=== PATIENT | female | born 1940 | race Caucasian/White ===

== ENCOUNTER 2017-01-28 15:44 | Inpatient (IN) | payer MEDICARE, OTHER ==
--- NOTE | ~2017-01-28 | A ---
[facility] Nutrition Therapy DATE: 01/29/17 Patient: EDMAR OCHOA Physician: PHYLLIS Address: [address] [place] [address] ROAD Room/Bed: [address], Zip: [place] [address] Admit Date: 01/28/17 Date of : 40 Height: 4 1 Weight: 125 57 NUTRITIONAL ASSESSMENT: REASON: PT SEEN FOR WOUNDS NOTED DURING ICU ROUNDS PT IS 77 Y.O. FEMALE ADMITTED FOR UTI PMH: CHRONIC DECUBITUS ULCERS ON BILATERAL LEGS AND (R) HEEL, HTN, HLD Anthropometrics: 4'1", WT: 125# (57 KG), BMI: 36.6 Labs: BUN: 28, CA+:6.5,, ALB: 2.5, AST: 46, K+:3.4, GFR: 48.4 Meds: LIPITOR, ASCORBIC ACID, ZOFRAN, PROTONIX, COLACE I/O & Bowel function: NOT AVAILABLE Skin Integrity: (R) FOOT WOUND; WOUND VAC TO (R) HEEL Estimated Nutrition Needs: INCREASED PROTEIN NEEDS 2' WOUND NOTED Assessment: CHART REVIEWED AND EVENTS NOTED. PT SEEN FOR WOUNDS (NOTED DURING ICU ROUNDS). PT REPORTS DECREASED PO INTAKE 2' DECREASED APPETITE PAST WEEK 2' "NOT FEELING WELL". PT NOTES GOOD PO INTAKE AND APPETITE PRIOR TO A WEEK AGO. PT DENIES ANY RECENT WEIGHT LOSS. THIS RD ENCOURAGED SLOW GRADUAL PO INTAKE + PROVIDED WOUND CARE DIET EDUCATION. PT WILLING TO TRY ENSURE PUDDING BID + ENSURE CLEAR BID FOR ADDITIONAL PROTEIN AND KCAL. PT REPORTED NO DIET QUESTIONS AT THIS TIME. RD TO FOLLOW. SEE RECOMMENDATIONS BELOW. Dx: INCREASED PROTEIN NEEDS R/T WOUNDS NOTED AEB WOUND VAC IN PLACE. -DECREASED NUTRIENT INTAKE R/T CURRENT CONDITION AEB PT REPORT ABOVE. Intervention: 1. HH DIET 2. ENSURE PUDDING BID + ENSURE CLEAR BID 3. VERBAL WOUND CARE DIET EDUCATION Monitoring, Evaluation and Goals: 1. ORAL INTAKE; CONSUME >50% OF MEALS AND SUPPS W/NO C/O N/V/D 2. LABS; WNL 3. SKIN; PROMOTE WOUND HEALING 4. GI; PROMOTE REGULAR GI FUNCTION MONITOR: -WEIGHTS -PO INTAKE/APPETITE [facility] Nutrition Therapy DATE: 01/29/17 Patient: EDMAR C CARVER Physician: PHYLLIS Address: [address] [place] [address] Room/Bed: [address], Zip: [place] [address] Admit Date: 01/28/17 Date of : 40 Height: 4 1 Weight: 125 57 -SUPPLEMENT INTAKE Recommendations: 1. PLEASE ORDER JOSE D ENSURE PUDDING BID W/MEALS + APPLE ENSURE CLEAR BID W/MEALS FOR ADDITIONAL PROTEIN, FLUID AND KCAL 2. APPRECIATE FAMILY AND STAFF TO ENCOURAGE ADEQUATE KCAL, PROTEIN AND FLUID INTAKE RD WILL F/U PER PROTOCOL PT IS MILDLY COMPROMISED Respectfully, DELFINO ZAMBRANO MS, RD, LD Food and Nutritional Services [facility] cc: client file
--- NOTE | ~2017-01-28 | DS ---
Unit #: [id number] #: [id number] Patient: EDMAR OCHOA [id number] [address] [place], [place] [address] [id number] I MR#: [id number] NAME: EDMAR OCHOA. ROOM: [facility] Age: 77 Sex: F Admission Date: 01/28/2017 : 1940 Discharge Date: 02/06/2017 Attending Physician: Jeremiah Deshpande M.D. Primary Care Physician: Tatiana Hooper M.D. DISCHARGE SUMMARY DISCHARGE DIAGNOSES 1. Sepsis. 2. Bacteremia. 3. Urinary tract infection. 4. Right heel chronic ulcer with questionable infection. 5. Status post acute kidney injury. 6. Chronic obstructive pulmonary disease. 7. Anemia of chronic disease. 8. Hypokalemia. CONSULTANTS ON THIS HOSPITAL STAY 1. Dr. Haney, nephrology. 2. Dr. Tinsley, cardiology. 3. Dr. Hammer, infectious disease. LABS AND DIAGNOSTICS AND PROCEDURES ON THIS HOSPITAL STAY 1. Chest x-ray on admission showed cardiomegaly with a mild interstitial prominence. 2. CT abdomen and pelvis: No obstructing stone associated with either kidney. Renovascular calcification right kidney. Benign appearing cysts in both kidneys. Please see the full report in the chart. 3. Blood culture from January 28 positive for E. coli. 4. Repeat blood culture from January 30 so far negative. 5. Urine culture positive for E. coli. 6. Wound culture from January 29 showed some Pseudomonas and Proteus mirabilis. HISTORY OF PRESENT HOSPITAL STAY Please refer to H and P done by me for initial presentation on this female. The patient is a 77-year-old female, a patient of Dr. Craft, who apparently recently was discharged from [facility] where she was treated for sepsis secondary to bilateral lower extremity chronic decubitus ulcer. She came in with the wound VAC on the right heel wound. Upon the presentation her main complaints were fever and hypotension and she had elevated white count and elevated lactic acid. She was again hypotensive. She was started on empiric antibiotics, admitted to ICU for closer monitoring hemodynamically. Patient was followed by feller operator/cardiology Dr. Tinsley. Patient did well hemodynamic-hernández. Currently she is normotensive, in fact slightly hypertensive. She was also evaluated by ID and cultures were done which the results are as above. She is on appropriate antibiotic and stable to be discharged from ID standpoint with the continuation of the IV ampicillin all the way through February 11, 2017. She is currently afebrile. Unit #: [id number] #: [id number] Patient: EDMAR OCHOA Last white count was 10.8. Again stable for discharge, hemodynamically stable. UTI, culture as above. Continue antibiotics. Right heel wound with infection, was followed by wound care service here. Wound VAC was continued. Currently discussed with wound care service. They feel like she has pretty good looking granulation tissue and wound is healing well. The culture is as above. Again antibiotics per Infectious Disease. Acute kidney injury which has resolved. Discharge date BUN and creatinine 7 and 0.3. Hypokalemia, has been replaced. History of COPD, currently at the baseline. Anemia of chronic disease, last hemoglobin and hematocrit from yesterday was 9.8 and 31.5 and has been stable. DISCHARGE MEDICATIONS 1. Proventil inhaler two puffs inhaler q.4 h. p.r.n. for shortness of air. 2. Mag oxide 400 mg daily. 3. Lovenox 40 mg subcu daily. 4. Zofran 4 mg p.o. q.4 h. p.r.n. 5. Lopressor 12.5 mg p.o. b.i.d. 6. Colace 100 mg p.o. daily. 7. Lipitor 10 mg q.h.s. 8. Zinc sulfate 220 mg p.o. daily. 9. Pepcid 20 mg daily. 10. Carafate 1 g p.o. b.i.d. 11. Aspirin 81 mg daily. 12. Heth 5/325 one tablet t.i.d. p.r.n. for pain. 13. Vitamin C 500 mg daily. 14. Vitamin D 4000 units daily. 15. Ampicillin 2 g IV q.8 h. till February 11, 2017. DISPOSITION [facility] a prison unit. FOLLOWUP 1. [facility]. 2. Outpatient followup with the plastic and reconstructive surgery with Dr. Acuna for her wound care needs. Dictated by... Jeremiah Deshpande M.D. SUREKHA/camila TD: 02/06/2017 20:51 JOB #: [id number] Unit #: [id number] #: [id number] Patient: EDMAR OCHOA DISCHARGE SUMMARY Page 1 of 1 X Jeremiah Deshpande MD X DISCHARGE SUMMARY
--- NOTE | ~2017-01-28 | CT4 ---
[facility] A Service of [facility] & [facility] RADIOLOGY TEXT RESULTS PATIENT: EDMAR OCHOA LOCATION: [address] : [birth year] UNIT #: [id number] AGE: [address]: Jeremiah Deshpande MD SEX: F ORDER DR: [id number] [facility] [address] [place], [place] [address] [id number] I MR#: [id number] Acc #: [id number] NAME: EDMAR OCHOA. : 1940 SEX: F STUDY DATE/TIME: 01/29/2017 20:56 UNIT: [facility] ROOM: [facility] STUDY DESCRIPTION: CT Abd and Pelv Wo Cont Attending Physician: Jeremiah Deshpande M.D. Ordering Physician: Ed Rivera M.D. Primary Care Physician: Tatiana Hooper M.D. MEDICAL IMAGING REPORT This report is preliminary unless electronic signature is present EXAM Abdomen and pelvis CT, no contrast INDICATIONS Nausea, vomiting for 2 days. History of hysterectomy and appendectomy. TECHNIQUE Noncontrast CT of the abdomen and pelvis was performed. This CT exam was performed with one or more of the following radiation dose reduction techniques: Automatic exposure control, adjustment of mA and/or kV according to patient size, and iterative reconstruction. COMPARISON 11/30/[address] ABDOMEN: Exam degraded by noncontrast technique. Trace amount of pleural fluid or pleural thickening in the lung bases. Probable atelectasis in both lower lobes. The heart is enlarged, no pericardial effusion. Aorta demonstrates atherosclerotic change; there is no distinct aneurysm. The spleen and adrenal glands are unremarkable. The pancreas is unremarkable. Gallbladder surgically absent. Liver within normal limits. There are bilateral renal cysts. There is a right-sided predominance. The largest cyst in the right kidney measures about 2.7 cm and appears to represent a benign cyst. There is a tiny hyperdense, probably benign proteinaceous or hemorrhagic cyst in the mid-pole right kidney measuring 5 mm. It cannot be further characterized on this noncontrast study. Tiny nonobstructing stones present in the right kidney versus renal vascular calcifications. 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 Visualized right ureter unremarkable. [facility] A Service of [facility] & [facility] RADIOLOGY TEXT RESULTS PATIENT: EDMAR OCHOA LOCATION: [facility] CICCU2-07 : 40 UNIT #: [id number] AGE: [address]: Jeremiah Deshpande MD SEX: F ORDER DR: On the left, there is pelvocaliectasis of the left renal collecting system and perhaps mild hydronephrotic change. Incidental lower-pole cyst on the left. Left ureter is dilated in its mid and distal aspect, but there is no obstructing stone identified. This may reflect recent passage of a stone, but there is no distinct stone identified in the bladder. Reactive-appearing retroperitoneal nodes present. CT PELVIS: Bladder decompressed by a Teixeira catheter; there is air within the bladder. The wall of the bladder is thickened; correlate with urinalysis with respect to possible cystitis. There is some stranding in the perivesical space in the pelvis and surrounding the distal ureters, which may reflect sequelae of mild ascending urinary tract infection. Uterus surgically absent. No drainable fluid collection in the pelvis, no free fluid present or adnexal mass. Moderate stool burden in the colon. Intermittent diverticulosis. Appendix surgically absent. Inguinal canals demonstrate no adenopathy or fluid collection. No free air. There is multilevel degenerative change in the thoracolumbar spine and exaggeration of the thoracolumbar curve. No acute-appearing fracture or malalignment. IMPRESSION 1. There is no obstructing stone associated with either kidney. There is pelvocaliectasis or mild hydronephrotic change of the left kidney and similar findings were also present on the 2010 study. There is wall thickening of the bladder suggestive of cystitis, and there is some stranding in the perivesical space and stranding around the distal ureters suggesting an element of ascending urinary tract infection. Correlate with urinalysis. 2. Nonobstructing stones versus renal vascular calcifications in the right kidney. 3. Benign-appearing cysts in both kidneys. Indeterminate but probably benign hyperdense lesion in the mid-pole right kidney measures 5 mm. This is probably a proteinaceous or hemorrhagic cyst. Consider further evaluation initially with non-emergent ultrasound, although this may ultimately require follow up with CT to confirm stability. Multiphase imaging with renal protocol CT also an option for more definitive characterization, if the patient is a candidate for IV contrast administration. 4. Surgical absence of the appendix, gallbladder and uterus. 5. Intermittent diverticulosis. 6. Bibasilar atelectasis. Dictated by... Cristopher Maldonado M.D. THIS IS AN ELECTRONICALLY VERIFIED REPORT [facility] A Service of [facility] / [facility] RADIOLOGY TEXT RESULTS PATIENT: EDMAR OCHOA LOCATION: [place] [address]- : 40 UNIT #: [id number] AGE: [address]: Jeremiah Deshpande MD SEX: F ORDER DR: Cristopher Maldonado M.D. at 01/30/2017 10:18 AM LUL/cornelius TD: 01/29/2017 22:45 JOB #: [id number] MEDICAL IMAGING REPORT Page 1 of 1 COPY
--- NOTE | ~2017-01-28 | CO ---
Unit #: [id number] #: [id number] Patient: EDMAR OCHOA [id number] [facility]. [place], [place] [address] [id number] I MR#: [id number] NAME: EDMAR OCHOA. ROOM: [facility] Age: 77 Sex: F Admission Date: 01/28/2017 : 1940 Attending Physician: Jeremiah Deshpande M.D. Primary Care Physician: Tatiana Hooper M.D. Consultation Date: 01/30/2017 CONSULTATION REPORT REASON FOR CONSULTATION Urinary tract infection with sepsis. HISTORY OF PRESENT ILLNESS This is a 76-year-old female who recently was at [facility] for bilateral lower extremity wounds. The patient reports to me that she had her right heel debrided by Dr. Acuna. She did not grow anything which was confirmed per the outside hospital charting system. She was sent home on p.o. Augmentin. The patient reports that she completed her Augmentin about one to two weeks ago, but she retained her Teixeira catheter in place. The Teixeira catheter was left in her to not contaminate her wounds. The patient then reported that she gradually began with some anorexia and decreasing appetite, increasing abdominal pain and started to notice "cotton in her Teixeira catheter." The patient came to the hospital and was found to be hypotensive with a systolic blood pressure in the 70s. She had an elevated lactic acid level as well as leukocytosis. The patient was admitted for further evaluation and was noted to have gram negative rods in her blood, e-coli in her urine and elevated procalcitonin level of 174. The patient was started on Rocephin and ID was asked to evaluate. Last p.m. Dr. Rivera sent the patient for a CT scan of the abdomen and pelvis. Her antibiotics were changed to meropenem and she was given a dose of tobramycin times one. This morning the patient reports to me that she still complains of some nausea, but abdominal pain is improving. She overall is feeling a little bit better. PAST MEDICAL HISTORY 1. Hypertension. 2. Dyslipidemia. 3. Osteoarthritis. 4. Dwarfism. PAST SURGICAL HISTORY 1. Back surgery. 2. Cholecystectomy. 3. times two. 4. Appendectomy. SOCIAL HISTORY The patient lives with others. She has past tobacco abuse, but none current for the last 15 years. She denies any alcohol or drug use. ALLERGIES No known drug allergies. Unit #: [id number] #: [id number] Patient: EDMAR OCHOA CURRENT MEDICATIONS 1. Meropenem. 2. For further medications please refer to the patient's MAR. REVIEW OF SYSTEMS The patient denies any current fever and chills. She reports that these have subsided. She denies any headache. Nausea is still persistent, but denies any vomiting or diarrhea. The patient denies any chest pain or shortness of breath. She reports that her wounds on her extremities have all been improving per the home health nurse. PHYSICAL EXAMINATION GENERAL: This is an in no apparent distress female who is currently resting in the bed. VITALS: Temperature 98.2, with a t-max this admission of 101.6, pulse 103, blood pressure 97/56, respiratory rate 14. HEENT: Pupils are equal. Her neck is supple. LUNGS: Clear to auscultation bilaterally with no wheezes or rhonchi noted. HEART: S1 and S2. Regular rate and rhythm. ABDOMEN: Positive bowel sounds. Soft and nontender. EXTREMITIES: She has a wound VAC in place on her right heel. : She has a Teixeira catheter in place with a minimum sediment and clear yellow urine. DIAGNOSTIC STUDIES IMAGING: CT scan of the abdomen and pelvis. Please see full report for complete details. No obstructing stone in either kidney. Stable changes since 2009. Bladder wall thickening suggestive of cystitis. Some stranding in the ureters, consistent with ascending urinary tract infection. Nonobstructing stone versus renal vascular calcifications in the right kidney, benign appearing cysts bilaterally, diverticulosis. Chest x-ray shows cardiomegaly with interstitial prominence. LABORATORY: BUN 27, creatinine 0.8, sodium 137, potassium 4.5, chloride 111, CO2 16, bilirubin 0.8, AST 46, ALT 19, alkaline phosphatase 168, lactic acid 1.6 which is improved from 4.0 on admission and procalcitonin 187. White blood cell count 31.3, hemoglobin 11.2, hematocrit 37.2, platelets 93. Influenza screen was negative. Urinalysis shows innumerable WBCs, 4+ bacteria, negative nitrites. Culture shows 2 of 2 gram negative rods in the blood from 01/28/2017. Urine culture 01/28/2017 shows e-coli sensitive to ceftriaxone. Foot culture is negative. ASSESSMENT/PLAN This is a 77-year-old female with recent treatment for a right heel wound at outside hospital, status post antibiotic therapy. The patient's cultures at that facility were negative. The patient began with decreasing appetite and chills and was noticing abnormal appearance of her urine. The patient was admitted to the hospital and found to be hypotensive and febrile with elevated lactic acid and procalcitonin level, with positive blood cultures and urine. At this time will treat as gram negative bolivar sepsis with e-coli urinary tract infection secondary to retained Teixeira catheter. Would recheck blood cultures times two 30 minutes apart. Will continue the patient on meropenem at this time, but may be able to deescalate to ceftriaxone pending the patient's blood culture identification and sensitivities. The patient continues to have leukocytosis and thrombocytopenia, likely secondary to sepsis, but will Unit #: [id number] #: [id number] Patient: EDMAR OCHOA continue to follow her CBC findings. The patient also has a left heel wound that is currently in a wound VAC and unable to visualize at this time. The patient reports that this has continuously been improving and has been followed by her plastic surgeon, Dr. Acuna. Will continue local wound care. Her wound culture this facility done by the wound care nurse is currently negative to date. Thank you for allowing us to participate in the care of this patient. Further recommendations to follow pending the patient's clinical course. Dictated by... Kateryna CastPJimmyR.N. for Rj Kimball TD: 01/30/2017 10:36 JOB #: [id number] CONSULTATION REPORT Page 1 of 1 X X CONSULTATION REPORT
--- NOTE | ~2017-01-28 | EKG ---
PATIENT: EDMAR OCHOA UNIT #: [id number] Ventricular Rate: 108 BPM Atrial Rate: 108 BPM P-R Interval: 116 ms QRS Duration: 60 ms Q-T Interval: 372 ms QTC Calculation(Bezet): 498 ms P [place]: 25 degrees Calculated R [place]: -30 degrees Calculated T [place]: 43 degrees Diagnosis Line: Sinus tachycardia Diagnosis Line: Left axis deviation Diagnosis Line: Abnormal ECG Diagnosis Line: When compared with ECG of 21-NOV-2009 19:18, Diagnosis Line: Nonspecific T wave abnormality no longer evident Diagnosis Line: in Lateral leads Diagnosis Line: QT has lengthened Diagnosis Line: Confirmed by MIRANDA MAYO MD ([id number]) on 01/29/2017 Diagnosis Line: 4:57:26 AM INTERPRETING MD: MARIA ESTHER URENA
--- NOTE | ~2017-01-28 | CO ---
Unit #: [id number] #: [id number] Patient: EDMAR OCHOA [id number] [address] [place], [place] [address] [id number] MR#: [id number] NAME: EDMAR OCHOA. ROOM: [facility] Age: 77 Sex: F Admission Date: 01/28/2017 : 1940 Attending Physician: Jeremiah Deshpande M.D. Primary Care Physician: Tatiana Hooper M.D. Consultation Date: 01/29/2017 CONSULTATION REPORT REASON FOR CONSULT Hypotension. HISTORY OF PRESENT ILLNESS This is a pleasant 77-year-old female, who was recently hospitalized in December of this year at [facility] secondary to decubitus wounds lower extremities and status post debridement of a wound on her right heel on December 20, 2016 at [facility] with subsequent wound VAC placement. She was there with sepsis as well. At discharge, she was sent home with oral antibiotics and [facility] has been following her in the home setting. The patient states she was sent out with a Teixeira catheter as she is wheelchair bound and incontinent and there was concern about the urine getting in her wound site. She reports, however, she was found to have a urinary tract infection while [facility] was visiting her. They therefore removed the catheter. This continued to worsen and she presented secondary to worsening weakness, nausea, vomiting, and lower abdominal pain. According to the patient, [facility] suggested she come to the emergency room for evaluation. In the emergency room, she was found to have a urinary tract infection, hypotension, and an elevated lactic acid and she was admitted with urosepsis. Initial blood pressures were in the 70s to 80s systolic. She did receive IV hydration and hypotension continued requiring initiation of a dopamine drip. Her urine culture is currently pending. Preliminary blood cultures are growing gram-negative rods. She has been started on the appropriate antibiotic therapy and is currently receiving low-dose IV fluids. We have been asked to see in the ICU. The patient has no previous reported history of any cardiac problems. Denies any complaints of chest pain, shortness of breath, or palpitations. Denies any syncope or near syncope. PAST MEDICAL HISTORY 1. Hypertension. 2. Hyperlipidemia. 3. Osteoarthritis. 4. Reformed tobacco abuse. The patient quit in the . Prior to that, she was smoking about a pack and a half a day. PAST SURGICAL HISTORY 1. Back surgery, states she has been wheelchair bound since her back surgery. 2. Cholecystectomy. 3. C-sections x2. 4. Appendectomy. SOCIAL HISTORY Unit #: [id number] #: [id number] Patient: EDMAR OCHOA The patient states she lives with her daughter and grandson. Again, she is a reformed tobacco user, quit smoking in the . Prior to that, she was about a pack and a half a day smoker for multiple years. Denied any alcohol or illicit drug use. FAMILY HISTORY Denies any reported family history of coronary artery disease. HOME MEDICATIONS 1. Aspirin 81 mg p.o. daily. 2. Zinc sulfate 220 mg p.o. daily. 3. Vitamin C 500 mg p.o. daily. 4. Albuterol two puffs inhalation q.4 hours. 5. Amlodipine/benazepril 5/20 mg p.o. daily. 6. Lopressor 50 mg p.o. b.i.d. 7. Colace 100 mg p.o. daily. 8. Zocor 20 mg p.o. daily. ALLERGIES No known drug allergies. PHYSICAL EXAMINATION GENERAL: This is a very pleasant 77-year-old female currently in ICU bed 7 in no acute distress. There is no currently no family present at bedside. VITAL SIGNS: Temperature 97.8, respiratory rate 18, pulse is 115, blood pressure 92/50, oxygen saturation 94% on 3 L nasal cannula. BMI 36. HEENT: Head is atraumatic, normocephalic. Pupils are equal and round. Oropharynx is clear. Mucous membranes are moist. NECK: Supple. No lymphadenopathy. No thyromegaly. Trachea is midline. No obvious bruits. No JVD. CHEST: S1, S2. Frequent irregular beats are noted. No murmur, gallop, or rub. A few scattered rhonchi. ABDOMEN: Soft, nontender, nondistended. Bowel sounds are present. EXTREMITIES: Lower extremities: Dressing is present. Wound VAC to the right heel. Pulses are palpable. No clubbing or cyanosis. NEUROLOGIC: She is alert and oriented. Follows commands with ease. Answers questions appropriately. DIAGNOSTIC STUDIES LABORATORY: Glucose 78, BUN 28, creatinine 1.1, sodium 134, potassium 3.4, chloride 107, CO2 of 18, calcium 6.5. Albumin 2.5, AST 46, alkaline phosphatase 168. Initial point of care troponin has been negative x1. Hemoglobin 9.3, hematocrit 31, WBC 34.1 with a left shift, platelet count 116,000. Urinalysis: Three plus leukocyte esterase, 1+ protein, 2+ blood, innumerous WBCs. Culture is currently pending. Blood cultures are positive preliminary for gram-negative rods. IMAGING: Chest x-ray shows cardiomegaly with mild interstitial prominence. Normal sized heart. Increased interstitial lung markings. Suggest CHF but because this has been present as reviewed from prior chest x-rays, may represent pulmonary fibrosis secondary to longstanding smoking history. CARDIOVASCULAR: EKG shows sinus tachycardia, rate of 108 beats per minute, nonspecific T-wave abnormality with no acute ischemic changes noted. QTc interval 498 ms. Unit #: [id number] #: [id number] Patient: EDMAR OCHOA IMPRESSION 1. Urinary tract infection, likely urosepsis. 2. Elevated lactic acid suggestive of sepsis with hypotension. 3. Sinus tachycardia with frequent PACs, questionable episodes of PSVT. 4. Gram-negative bacteremia with sepsis and shock. 5. Questionable pulmonary fibrosis versus congestive heart failure. 6. History of hypertension. 7. History of hyperlipidemia. 8. Chronic obstructive pulmonary disease. 9. Reformed tobacco abuse. 10. Recent hospitalization at [facility] in December, status post wound debridement of the right heel with wound VAC placement. Also, there had a diagnosis of sepsis. 11. Immobility syndrome, patient is wheelchair bound. PLAN At this time, we have been asked to see the patient secondary to hypotension. She has a urinary tract infection with urosepsis. Lactic acid has been elevated and a sepsis protocol has also been initiated. The patient is slightly hypokalemic. Will replace her potassium and also start her on Zofran as needed for p.r.n. nausea. Will check BNP and a TSH to blood in lab and call results. For now, all blood pressure medications will be held. Will trend cardiac enzymes and follow EKGs with parameters to call if troponin is greater than 0.5. The patient also has noted a 2 g drop in hemoglobin. This could be dilutional secondary to her fluid boluses she has received; however, according to the nursing staff, there was some suggestion of blood in her stool. Will check stool for occult blood x2. Will change her IV fluids to half normal saline with 40 KCl at 50 mL an hour. Start diuresis with IV Bumex 1 mg STAT and attempt to wean down her dopamine drip to obtain a systolic blood pressure of at least 90. Will check cardiac ultrasound with Doppler studies to assess for any left ventricular systolic dysfunction or valvular abnormalities. Further recommendations pending the outcome of 2D echocardiogram. Will continue with supportive therapy to maintain adequate blood pressures. As her infection clears, her pressors should be able to be weaned to off. Eventually, re-initiation of her antihypertensive medications would be recommended. Thank you for asking us to follow along in taking care of this very pleasant patient. Dictated by... Lolly Gregory A.P.R.N. for Rj Goncalves/tma TD: 01/29/2017 16:13 JOB #: [id number] Unit #: [id number] #: [id number] Patient: EDMAR OCHOA CONSULTATION REPORT Page 1 of 1 X Lolly Gregory APRN X CONSULTATION REPORT
--- NOTE | ~2017-01-28 | HP ---
Unit #: [id number] #: [id number] Patient: EDMAR OCHOA [id number] [address] [place], [place] [address] [id number] MR#: [id number] NAME: EDMAR OCHOA. ROOM: [id number] Age: 77 Sex: F Admission Date: 01/28/2017 : 1940 Attending Physician: Jeremiah Deshpande M.D. Primary Care Physician: Tatiana Hooper M.D. HISTORY AND PHYSICAL ADMISSION DIAGNOSES 1. Urosepsis. 2. History of hypertension. 3. Hypotension. 4. Chronic decubitus ulcers on bilateral legs and right heel. HISTORY OF PRESENT ILLNESS Patient is a 77-year-old female, patient of Dr. Hooper, who looks like has been recently discharged from [facility] from Dr. Craft's service where she was treated for sepsis secondary to bilateral lower extremity decubitus ulcers. She was stabilized and discharged home on p.o. antibiotics. She also was discharged home with a Teixeira with the intention to keep her wounds dry from the urine for better healing. However, she came back today with increasing weakness and fatigue, along with some subjective fever and chills. Patient was evaluated in the emergency room and diagnosed with a UTI with sepsis secondary to profound hypotension with systolic blood pressures in the 70s to 80s. Initially, she responded well with IV hydration. However, her lactic acid level is elevated, and she is currently still hypotensive in the 70s and 80s. Her initial lactic acid was 2.4 with a white count of 13,000 and urinalysis significant for 3+ leukocyte esterase and enumerable WBC casts. Cultures have been sent out. REVIEW OF SYSTEMS Currently, patient denies any other symptoms. She denies any active chest pain, shortness of air, dyspnea, headache, or dizziness. She complains of nausea and vomiting for the last couple of days. She denies any diarrhea. So a 12-point review of systems on this patient is negative except as above in the History of Present Illness. PAST MEDICAL HISTORY 1. Hypertension. 2. Dyslipidemia. 3. Severe (1) . 4. Osteoarthritis. PAST SURGICAL HISTORY Back surgery. SOCIAL HISTORY She denies any tobacco, alcohol, or illicit drug use. FAMILY HISTORY Unremarkable. Unit #: [id number] #: [id number] Patient: EDMAR OCHOA HOME MEDICATIONS It looks like she was taking Lopressor, aspirin, Zocor, Darvocet, amlodipine and benazepril, Nexium, Carafate, Fosamax, Lortab, Silvadene, Keflex, and Omnicef. ALLERGIES No known drug allergies. PHYSICAL EXAMINATION GENERAL: Patient is a very pleasant 77-year-old female in no acute distress. VITAL SIGNS: Blood pressure 76/42, heart rate 103, respirations 18, and temperature 98.3. HEENT: Head is atraumatic. Pupils equal, round, and reactive to light and accommodation. Extraocular muscles intact. Oropharynx clear. NECK: Supple. No mass, no JVD, and no bruits. CHEST: Diminished bilaterally. CARDIOVASCULAR: S1 and S2. No murmurs. ABDOMEN: Soft, nontender, and nondistended. LOWER EXTREMITIES: With bilateral dressing in the knee area secondary to posterior knee decubitus ulcers. She also has a wound V.A.C. to the right heel wound. NEUROLOGIC: Patient is alert, oriented, and answering questions appropriately. She is with decreased strength in the lower extremities. She is a functional paraplegic. Otherwise, no facial asymmetry. No other focal deficits. DIAGNOSTIC STUDIES LABORATORY: Chemistry significant for blood glucose of 114, BUN 24, sodium 132, potassium 3.4, bicarb 16, calcium 7.7, AST 46, and alkaline phosphatase 168. Lactic acid 2.4. Set of cardiac enzymes negative. Hematology with white count of 13,000, hemoglobin and hematocrit 11.6 and 38, and platelets 163,000. Urinalysis as above. Blood culture and urine culture both pending. IMAGING: Chest x-ray shows cardiomegaly with some mild interstitial prominence. ASSESSMENT AND PLAN 1. Urinary tract infection, likely urosepsis. Started on Rocephin which will be continued. Follow up on cultures. 2. Sepsis with hypotension. Admit to ICU. Initiate sepsis protocol. Dr. Tinsley to be pricing director for hypotension. May need pressors. Monitor hemodynamics. 3. History of hypertension. Hold blood pressure medications for now. 4. Dyslipidemia. Continue home medications. 5. Osteoporosis with osteoarthritis. Continue home medications. 6. Gastrointestinal and deep venous thrombosis prophylaxis with some proton pump inhibitor and started on Lovenox. 7. Lower extremity chronic ulcers. Will consult Wound Care. 1. Dictated by Rj Clayton/crista Unit #: [id number] #: [id number] Patient: EDMAR OCHOA TD: 01/28/2017 21:53 JOB #: [id number] HISTORY AND PHYSICAL Page 1 of 1 X Jeremiah Deshpande MD X HISTORY AND PHYSICAL
--- NOTE | ~2017-01-28 | CR72 ---
[facility] A Service of [facility] & [facility] RADIOLOGY TEXT RESULTS PATIENT: EDMAR OCHOA LOCATION: [facility]11-18 : 40 UNIT #: [id number] AGE: [address]: Jeremiah Deshpande MD SEX: F ORDER DR: [id number] [facility] [address] [place], [place] [address] [id number] MR#: [id number] Acc #: [id number] NAME: EDMAR OCHOA. : 1940 SEX: F STUDY DATE/TIME: 01/28/2017 14:41 UNIT: [facility] ROOM: STUDY DESCRIPTION: CR Chest Single View Portable Attending Physician: Richard Clemons M.D. Ordering Physician: Richard Clemons M.D. Primary Care Physician: Tatiana Hooper M.D. MEDICAL IMAGING REPORT This report is preliminary unless electronic signature is present EXAM Portable chest INDICATIONS Fever and shortness of breath for 2 days. COMPARISON 05/30/2013 FINDINGS Cardiomegaly. Mild interstitial prominence. No acute consolidation. Degenerative change of the shoulders. IMPRESSION Cardiomegaly with mild interstitial prominence. Dictated by... Addison Ricci M.D. THIS IS AN ELECTRONICALLY VERIFIED REPORT Addison Ricci M.D. at 01/29/2017 7:54 AM FREDDY/afia TD: 01/28/2017 15:56 JOB #: [id number] MEDICAL IMAGING REPORT Page 1 of 1 COPY
--- NOTE | ~2017-01-28 | CO ---
Unit #: [id number] #: [id number] Patient: EDMAR REY [id number] [address] [place], [place] [address] [id number] I MR#: [id number] NAME: EDMAR REY. ROOM: [facility] Age: 77 Sex: F Admission Date: 01/28/2017 : 1940 Attending Physician: Jeremiah Deshpande M.D. Primary Care Physician: Tatiana Hooper M.D. Consultation Date: 01/30/2017 CONSULTATION REPORT REASON FOR CONSULT Acute kidney injury and metabolic acidosis. HISTORY OF PRESENT ILLNESS Ms. 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 She was found to be septic with a urinary tract infection in the emergency room with hypotension. She has been here in the ICU for blood pressure support and antibiotics. We were asked to see for some acute kidney injury on admission as well as lactic acidosis. Of note, patient was just at [facility] about a month ago for chronic wound care as she has developed wounds behind her knees related to a wheelchair and also her right foot. 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 She also had a urinary tract infection at that time. Of note, patient is on an SENDY inhibitor at home for blood pressure. She denies the use of any NSAIDs. She is unaware of any history of kidney stones, although there were stones seen on her CT scan here. Initial urinalysis was cloudy, but it is clearing up this afternoon. Her blood pressure is better. She had had some nausea and vomiting, which has resolved, but she still has a poor appetite. She denies any chest discomfort or shortness of breath. PAST MEDICAL HISTORY Significant for hypertension, hyperlipidemia, recurrent urinary tract infections, immobility syndrome and wound care, osteoarthritis, chronic pain syndrome, GERD, osteoporosis, and previous tobacco use many years ago. PAST SURGICAL HISTORY Patient has had back surgery, hysterectomy, and appendectomy. MEDICATIONS Home meds are as follows: 1. Aspirin. 2. Darvocet. 3. Nexium. 4. Carafate. 5. Fosamax. 6. Omnicef. 7. Lortab. 8. Silvadene. 9. Keflex. 10. Zinc sulfate. 11. Vitamin C. 12. Albuterol. Unit #: [id number] #: [id number] Patient: EDMAR REY 13. Amlodipine benazepril for blood pressure. 14. Lopressor. 15. Colace. 16. Zocor. Current hospital meds are as follows: 1. Aspirin daily. 2. Lovenox 1 mg/kg subcu. daily. 3. Colace 100 mg a day. 4. Zinc sulfate daily. 5. Protonix 40 mg p.o. daily. 6. Magnesium oxide 400 mg a day. 7. Vitamin C daily. 8. Lipitor 10 mg at bedtime. 9. Sucralfate 1 g twice a day. 10. Dopamine drip. 11. IV fluids, 2 different solutions running at a total of 150 mL per hour. 12. Meropenem 500 mg IV q.8 and p.r.n. ALLERGIES She has no known drug allergies. FAMILY HISTORY Patient denies any family history of kidney problems to me, specifically no one on dialysis or needing kidney transplant. SOCIAL HISTORY Patient quit smoking in the . No alcohol or drug abuse. She apparently lives with family who is able to assist her with her wheelchair and immobility needs. REVIEW OF SYSTEMS A complete 12-point review of systems was completed with the above findings. In addition, she denies any headaches or dizziness. No nosebleed, sore throat, or earache. No chest pain. No chest heaviness. No hemoptysis. No hematemesis with her vomiting. No bright red blood per rectum or melena. No gross hematuria. No swelling issues. No rashes or itching, other than the wounds. Chronic back pain. No intolerance to heat or cold. No bleeding issues. No recent weight changes. Unless otherwise indicated, the review of systems was negative. PHYSICAL EXAMINATION VITAL SIGNS: Patient remains afebrile, pulse 100, respiratory rate 14, and blood pressure 91/50. Blood pressure was as low as 54/30. Is and Os are positive by 4 liters with 2.3 liters of urine output. GENERAL: This is a 77-year-old female who is lying flat in bed alert, talkative, and in no acute distress. HEENT: Head is atraumatic and normocephalic. Eyes show pink conjunctivae with no scleral icterus. No nasal drainage. No nosebleed. Oropharynx is slightly dry. No thrush. NECK: Shows no rigidity. No JVD. HEART: Tachycardic, but regular with a murmur present. No gallop or rub appreciated. LUNGS: Clear anteriorly with no wheezing or rhonchi. Breathing is nonlabored. ABDOMEN: Soft and nontender. Bowel sounds are present. No masses appreciated. Unit #: [id number] #: [id number] Patient: EDMAR REY EXTREMITIES: Patient does have short legs with her dwarfism. There is no lower extremity cyanosis or pitting edema. SKIN: Dry without rashes. GENITOURINARY: Teixeira catheter is in place with nonbloody urine, still somewhat cloudy. LYMPHATIC: There is no neck cervical lymphadenopathy. MUSCULOSKELETAL: No joint effusions noted. NEUROLOGIC: Cranial nerves are grossly intact. She does have some generalized weakness. PSYCHIATRIC: Mood and affect appear normal. DIAGNOSTIC STUDIES IMAGING: CT scan of the abdomen and pelvis was done yesterday without contrast and did show some mild hydronephrosis of the left kidney that was similar to 2010. There were some nonobstructing stones in the right kidney. There were cysts in both kidneys. Chest x-ray from the showed some cardiomegaly with mild interstitial prominence. LABORATORY: CBC today showed a white count of 31, hemoglobin of 11, and platelet count 93 with a left shift and no peripheral eosinophilia. Chemistry today: Sodium 137, potassium 4.5, chloride 111, bicarb 17 for anion gap now of 10, glucose 68, BUN 27, creatinine 0.8, calcium was 6.5, and mag 1.7. Blood cultures are growing gram-negative rods. Urine culture is E. coli, pansensitive. CK level yesterday was 358 and 496, respectively. TSH level was normal. BNP was 600. Yesterday's potassium was 3.4 with a creatinine of 1.1. Lactic acid level had come down to 1.6 on last check from elevated levels prior to that. Urinalysis did show numerous white blood cells with bacteria on admission. Admission potassium was 3.4 and admission bicarb of 16 for a gap of 13. Creatinine was 0.8 and a lactic acid was as high as 4. Therefore, overall, her creatinine has come down from 1.1 yesterday to 0.8 today and her low potassium has improved from a low of 3.2 up to 4.5 today with a normal magnesium today of 1.7. ASSESSMENT AND PLAN 1. Acute kidney injury. This is occurring in the setting of sepsis syndrome. She has had significant hypotension and would have altered renal compensation on her SENDY inhibitor. She seems to be improving with blood pressure support. We will continue her antibiotics, pressors, and fluids and recheck in the morning. Her CPK level was a little high and had been trending down and I will recheck in the morning. We can hold her statin if we need to. 2. Lactic acidosis. This has improved. I will be placing her on a bicarbonate drip as she now appears to have a nonanion gap acidosis, likely related to brisk saline infusion, which should correct with the bicarbonate drip. 3. Hypotension. This has improved with fluids and blood pressure support, which will be continued. 4. Hypokalemia. This has been replaced and is better. We will continue some potassium in her IV fluids. 5. Urosepsis on meropenem with ID seeing. 6. Dwarfism. 7. Pulmonary hypertension on echo. 8. Moderate mitral regurgitation and tricuspid regurgitation on echocardiogram. 9. Nephrolithiasis with no obstruction. Unit #: [id number] #: [id number] Patient: EDMAR REY 10. Mild left hydronephrosis, which appears to be old based on previous CT scan. Perhaps a stone did pass. 11. Immobility syndrome with wound issues. I would like to thank Dr. Deshpande for this consult and the opportunity to participate in the evaluation and care of Ms. Rey. Dictated by... Trey Haney Jr., MMonet. CANELO/everardo TD: 01/31/2017 09:31 JOB #: [id number] CONSULTATION REPORT Page 1 of 1 X Trey Haney MD CONSULTATION REPORT
--- NOTE | ~2017-01-28 | FU ---
[facility] Nutrition Therapy DATE: 02/05/17 Patient: EDMAR OCHOA Physician: PHYLLIS Address: [address] Room/Bed: [address] [place] [address], Zip: [place] [address] Admit Date: 01/28/17 Date of : 40 Height: 4 1 Weight: 126 57.5 NUTRITION MONITORING/FOLLOW-UP: Reason: PT SEEN FOR FOLLOW-UP DX: UTI Anthropometrics: 4'1", WT: 126# (57 KG), BMI: 36.9 -WEIGHTS HAVE BEEN STABLE SINCE ADMIT Labs: CREAT: 0.4, CA+:7.8 Meds: KCL, PEPCID, VITAMIN D, LIPITOR, ASCORBIC ACID, ZOFRAN, COLACE I&O's: 1909/1849 Skin: (R) FOOT STAGE 4 WOUND; STAGE 2 WOUND (L) KNEE Estimated Nutrition Needs: INCREASED PROTEIN NEEDS 2' SKIN BREAKDOWN NOTED Assessment: CHART REVIEWED AND EVENTS NOTED. PT SEEN FOR FOLLOW-UP. PT TRANSFERRED TO [facility] FROM ICU. PT REPORTS APPETITE IMPROVING, NOTING GOOD PO INTAKE AND APPETITE, NO C/O N/V/D. PT REPORTS TOLERATING MEALS, ADDS SHE ATE 100% BREAKFAST THIS AM. OF NOTE, PT RECEIVES ENSURE PUDDING BID + ENSURE CLEAR BID AND WANTS TO CONTINUE TO RECEIVE THEM. THIS RD ENCOURAGED ADEQUATE KCAL, PROTEIN AND FLUID INTAKE TO PROMOTE WOUND HEALING, PT AGREED AND REPORTED NO DIET QUESTIONS AT THIS VISIT. RD TO REMAIN AVAILABLE. Dx: INCREASED PROTEIN NEEDS R/T WOUNDS NOTED AEB WOUND VAC IN PLACE.-ACTIVE -DECREASED NUTRIENT INTAKE R/T CURRENT CONDITION AEB PT REPORT ABOVE.-RESOLVED Intervention: 1. HH DIET 2. JOSE D ENSURE PUDDING BID + APPLE ENSURE CLEAR BID 3. VERBAL WOUND CARE DIET EDUCATION Monitoring, Evaluation and Goals: GOALS MET 1. ORAL INTAKE; CONSUME AND TOLERATE MEALS AND SUPPLEMENTS W/NO C/O N/V/D (PO>50%)-RESOLVED 2. SKIN; PROMOTE WOUND HEALING-IN PROGRESS 3. LABS; WNL-IN PROGRESS MONITOR: -PO INTAKE/APPETITE -WEIGHTS -SUPPLEMENT INTAKE -WOUND CARE [facility] Nutrition Therapy DATE: 02/05/17 Patient: EDMAR OCHOA Physician: PHYLLIS Address: [address] Room/Bed: 555[address] [facility], Zip: [place] [address] Admit Date: 01/28/17 Date of : 40 Height: 4 1 Weight: 126 57.5 Recommendations: 1. CONTINUE TO ENCOURAGE ADEQUATE KCAL, PROTEIN AND FLUID INTAKE 2. ADD MVI W/MINERAL DAILY + 220 MG ZINC (X 10 DAYS) TO PROMOTE WOUND HEALING RD WILL F/U PER PROTOCOL PT IS MILDLY COMPROMISED Respectfully, DELFINO ZAMBRANO MS, RD, LD Food and Nutritional Services [facility] cc: client file
--- NOTE | ~2017-01-28 | EKG ---
PATIENT: EDMAR OCHOA UNIT #: [id number] Ventricular Rate: 106 BPM Atrial Rate: 106 BPM P-R Interval: 144 ms QRS Duration: 56 ms Q-T Interval: 318 ms QTC Calculation(Bezet): 422 ms P Atwood: 60 degrees Calculated R Atwood: 12 degrees Calculated T Atwood: 70 degrees Diagnosis Line: Sinus tachycardia with Premature atrial complexes Diagnosis Line: Low voltage QRS Diagnosis Line: Borderline ECG Diagnosis Line: When compared with ECG of 28-JAN-2017 13:33, Diagnosis Line: Premature atrial complexes are now Present Diagnosis Line: Nonspecific T wave abnormality now evident in Diagnosis Line: Lateral leads Diagnosis Line: QT has shortened Diagnosis Line: Confirmed by MARIA ESTHER URENA, MIRANDA ([id number]) on 01/31/2017 Diagnosis Line: 6:39:07 PM INTERPRETING MD: MARIA ESTHER URENA
[2017-01-28 14:30] LABS: BASOPHIL% 0.2 % (0-2.5); EOSINOPHIL% 0.1 % (0.0-7.0); HEMOGLOBIN 11.6 gm/dL (12.0-16.0); LYMPHOCYTE# 0.3 X10e3 (1.0-3.5); LYMPHOCYTE% 2.4 % (17.0-45.0); MEAN CELL VOLUME 77.6 FL (83-96); MEAN CORPUSCULAR HEMOGLOBIN 23.6 PG (28-34); MEAN CORPUSCULAR HGB CONC 30.4 g/dL (30-36); MEAN PLATELET VOLUME 8.4 FL (6.5-11.5); MONOCYTE# 0.1 X10e3 (0-1.0); MONOCYTE% 0.6 % (3.0-12.0); NEUTROPHIL# 12.9 X10e3 (1.5-7.1); NEUTROPHIL% 96.7 % (40-75); RED CELL DISTRIBUTION WIDTH 21.9 % (11.0-15.5); WHITE BLOOD COUNT 13.3 X10e3 (4.0-10.5)
[2017-01-28 14:33] LABS: ALBUMIN SERUM 2.5 g/dL (3.5-5.0); BILIRUBIN,TOTAL 0.8 mg/dL (0.2-2.0); CALCIUM SERUM 7.7 mg/dL (8.4-10.2); CREATININE SERUM 0.8 mg/dL (0.6-1.4); GLOM FILT RATE Estimated 71.2 mL/min (>60); POTASSIUM 3.4 mmol/L (3.5-5.1); PROTEIN TOTAL SERUM 5.7 g/dL (6.0-8.3)
[2017-01-28 14:36] LABS: URINE SOURCE CLEAN CATCH
[2017-01-28 14:41] LABS: DIFF IND NO
[2017-01-28 14:42] LABS: PLATELET COUNT 163 X10e3 (140-420)
[2017-01-28 14:52] LABS: URINE APPEARANCE TURBID; URINE BILIRUBIN NEG (NEG); URINE BLOOD 2+ (NEG); URINE COLOR YELLOW; URINE GLUCOSE NEG (NEG); URINE KETONE NEG (NEG); URINE LEUKOCYTE ESTERASE 3+ (NEG); URINE NITRATE NEG (NEG); URINE PH 5.5 (5-8); URINE PROTEIN 1+ (NEG); URINE SPECIFIC GRAVITY 1.013 (1.003-1.035); URINE UROBILINOGEN 0.2 MG/DL (NEG)
[2017-01-28 14:54] LABS: CULTURE INDICATED? YES; URINE BACTERIA AUWI 4+ (NEGATIVE); URINE SQUAMOUS EPITHELIAL CELL MOD /[HPF]; UWBCS1 AUWI INNUM (0-5)
[~2017-01-28 15:44] MED LIST: AMLODIPINE-BENA1 CAP PO; ASPIRIN PO; BENZONATATE PO; CARAFATE1 G PO; DARVOCET-N 1001 TAB PO; DYAZIDE 37.5/251 CAP PO; FOSAMAX PO; FOSAMAX70 MG PO; IBUPROFEN PO; KCL PO; KEFLEX500 MG PO; LEVAQUIN PO; LOPRESSOR PO; LORTAB 5/500 TA1 TA1 PO; LOTREL PO; NEXIUM PO; OMNICEF300 MG PO; PREDNISONE PO; SILVADENE TOP; ZOCOR PO
[2017-01-28 18:04] LABS: INFLUENZA A NEG (NEG); INFLUENZA B NEG (NEG)
[2017-01-28 18:52] LABS: POC - CKMB 1.3 ng/mL (0.0-7.9); POC - TROPONIN <0.05 ng/mL (<=0.05)
[2017-01-29 04:44] LABS: HEMOGLOBIN 9.3 gm/dL (12.0-16.0); MEAN CELL VOLUME 77.8 FL (83-96); MEAN CORPUSCULAR HEMOGLOBIN 23.5 PG (28-34); MEAN CORPUSCULAR HGB CONC 30.1 g/dL (30-36); MEAN PLATELET VOLUME 8.9 FL (6.5-11.5); RED BLOOD COUNT 3.98 X10e (3.90-5.30); RED CELL DISTRIBUTION WIDTH 22.2 % (11.0-15.5); WHITE BLOOD COUNT 34.1 X10e3 (4.0-10.5)
[2017-01-29 05:08] LABS: BUN/CREATININE RATIO 25.45; CALCIUM SERUM 6.5 mg/dL (8.4-10.2); CREATININE SERUM 1.1 mg/dL (0.6-1.4); GLOM FILT RATE Estimated 48.4 mL/min (>60); POTASSIUM 3.4 mmol/L (3.5-5.1)
[2017-01-29] MEDS ORDERED: VITAMIN C500 M1 PO (09:14)
[2017-01-29] MEDS ORDERED: ZINC SULFATE220 M1 PO (09:14)
[2017-01-29] MEDS ORDERED: ALBUTEROL20 ml INH (09:16)
[2017-01-29] MEDS ORDERED: AMLODIPINE-BEN1 EAC1 PO (09:16)
[2017-01-29] MEDS ORDERED: LOPRESSOR PO (09:17)
[2017-01-29] MEDS ORDERED: ZOCOR20 MG PO (09:18)
[2017-01-29] MEDS ORDERED: DOCUSATE SODIU100 MG PO (09:18)
[2017-01-29 11:53] LABS: %MB 2.3 % (0.0-4.0); MB 11.2 ng/ml
[2017-01-29 17:31] LABS: %MB 2.4 % (0.0-4.0); MB 8.7 ng/ml
[2017-01-30 05:44] LABS: BASOPHIL# 0.1 X10e3 (0-0.3); BASOPHIL% 0.2 % (0-2.5); EOSINOPHIL# 0.4 X10e3 (0-0.7); EOSINOPHIL% 1.4 % (0.0-7.0); HEMATOCRIT 37.2 % (35.0-45.0); HEMOGLOBIN 11.2 gm/dL (12.0-16.0); LYMPHOCYTE# 1.2 X10e3 (1.0-3.5); MEAN CORPUSCULAR HEMOGLOBIN 23.5 PG (28-34); MEAN CORPUSCULAR HGB CONC 30.2 g/dL (30-36); MEAN PLATELET VOLUME 9.8 FL (6.5-11.5); MONOCYTE% 6.5 % (3.0-12.0); NEUTROPHIL# 27.5 X10e3 (1.5-7.1); NEUTROPHIL% 87.9 % (40-75); PLATELET COUNT 93 X10e3 (140-420); RED BLOOD COUNT 4.78 X10e (3.90-5.30); RED CELL DISTRIBUTION WIDTH 22.3 % (11.0-15.5); WHITE BLOOD COUNT 31.3 X10e3 (4.0-10.5)
[2017-01-30 06:23] LABS: PROCALCITONIN 187.1 NG/ML
[2017-01-30 06:56] LABS: BUN/CREATININE RATIO 33.75; CALCIUM SERUM 6.5 mg/dL (8.4-10.2); CREATININE SERUM 0.8 mg/dL (0.6-1.4); GLOM FILT RATE Estimated 71.2 mL/min (>60); MAGNESIUM 1.7 mg/dL (1.6-3.0); POTASSIUM 4.5 mmol/L (3.5-5.1)
[2017-01-30 07:04] LABS: DIFF IND YES
[2017-01-30 07:05] LABS: ANISOCYTOSIS MOD; PLATELET ESTIMATE DECREASED (NORMAL); POIKILOCYTOSIS MOD
[2017-01-31 06:03] LABS: BASOPHIL% 0.2 % (0-2.5); EOSINOPHIL# 0.1 X10e3 (0-0.7); EOSINOPHIL% 0.6 % (0.0-7.0); HEMATOCRIT 34.3 % (35.0-45.0); HEMOGLOBIN 10.4 gm/dL (12.0-16.0); LYMPHOCYTE# 0.9 X10e3 (1.0-3.5); MEAN CELL VOLUME 76.9 FL (83-96); MEAN CORPUSCULAR HEMOGLOBIN 23.4 PG (28-34); MEAN CORPUSCULAR HGB CONC 30.4 g/dL (30-36); MEAN PLATELET VOLUME 9.5 FL (6.5-11.5); MONOCYTE% 4.5 % (3.0-12.0); NEUTROPHIL# 20.9 X10e3 (1.5-7.1); NEUTROPHIL% 90.7 % (40-75); PLATELET COUNT 91 X10e3 (140-420); RED BLOOD COUNT 4.46 X10e (3.90-5.30); RED CELL DISTRIBUTION WIDTH 22.6 % (11.0-15.5)
[2017-01-31 06:05] LABS: DIFF IND NO
[2017-01-31 07:01] LABS: CALCIUM SERUM 7.1 mg/dL (8.4-10.2); CREATININE SERUM 0.6 mg/dL (0.6-1.4); GLOM FILT RATE Estimated 87.9 mL/min (>60); MAGNESIUM 1.6 mg/dL (1.6-3.0); POTASSIUM 4.3 mmol/L (3.5-5.1)
[2017-02-01 05:02] LABS: BASOPHIL% 0.3 % (0-2.5); EOSINOPHIL# 0.2 X10e3 (0-0.7); EOSINOPHIL% 1.2 % (0.0-7.0); HEMATOCRIT 34.6 % (35.0-45.0); HEMOGLOBIN 10.7 gm/dL (12.0-16.0); LYMPHOCYTE# 1.2 X10e3 (1.0-3.5); LYMPHOCYTE% 7.6 % (17.0-45.0); MEAN CELL VOLUME 76.9 FL (83-96); MEAN CORPUSCULAR HEMOGLOBIN 23.7 PG (28-34); MEAN CORPUSCULAR HGB CONC 30.8 g/dL (30-36); MEAN PLATELET VOLUME 9.1 FL (6.5-11.5); MONOCYTE# 0.8 X10e3 (0-1.0); MONOCYTE% 4.9 % (3.0-12.0); NEUTROPHIL# 13.8 X10e3 (1.5-7.1); PLATELET COUNT 101 X10e3 (140-420); RED CELL DISTRIBUTION WIDTH 22.4 % (11.0-15.5)
[2017-02-01 05:03] LABS: DIFF IND NO
[2017-02-01 05:42] LABS: BUN/CREATININE RATIO 27.5; CALCIUM SERUM 7.3 mg/dL (8.4-10.2); CREATININE SERUM 0.4 mg/dL (0.6-1.4); GLOM FILT RATE Estimated 100.5 mL/min (>60)
[2017-02-02 04:42] LABS: HEMATOCRIT 33.3 % (35.0-45.0); HEMOGLOBIN 10.4 gm/dL (12.0-16.0); MEAN CELL VOLUME 76.1 FL (83-96); MEAN CORPUSCULAR HEMOGLOBIN 23.7 PG (28-34); MEAN CORPUSCULAR HGB CONC 31.2 g/dL (30-36); MEAN PLATELET VOLUME 8.7 FL (6.5-11.5); RED BLOOD COUNT 4.38 X10e (3.90-5.30); RED CELL DISTRIBUTION WIDTH 21.9 % (11.0-15.5); WHITE BLOOD COUNT 11.4 X10e3 (4.0-10.5)
[2017-02-02 05:12] LABS: BUN/CREATININE RATIO 26.66; CALCIUM SERUM 7.3 mg/dL (8.4-10.2); CREATININE SERUM 0.3 mg/dL (0.6-1.4); GLOM FILT RATE Estimated 110.5 mL/min (>60); POTASSIUM 3.9 mmol/L (3.5-5.1)
[2017-02-03 05:31] LABS: BASOPHIL# 0.1 X10e3 (0-0.3); BASOPHIL% 0.4 % (0-2.5); EOSINOPHIL# 0.3 X10e3 (0-0.7); EOSINOPHIL% 2.5 % (0.0-7.0); HEMATOCRIT 32.9 % (35.0-45.0); HEMOGLOBIN 10.2 gm/dL (12.0-16.0); LYMPHOCYTE# 1.4 X10e3 (1.0-3.5); LYMPHOCYTE% 11.3 % (17.0-45.0); MEAN CELL VOLUME 76.7 FL (83-96); MEAN CORPUSCULAR HEMOGLOBIN 23.6 PG (28-34); MEAN CORPUSCULAR HGB CONC 30.8 g/dL (30-36); MEAN PLATELET VOLUME 8.7 FL (6.5-11.5); MONOCYTE# 1.1 X10e3 (0-1.0); NEUTROPHIL# 9.5 X10e3 (1.5-7.1); NEUTROPHIL% 76.8 % (40-75); PLATELET COUNT 134 X10e3 (140-420); RED CELL DISTRIBUTION WIDTH 21.8 % (11.0-15.5); WHITE BLOOD COUNT 12.4 X10e3 (4.0-10.5)
[2017-02-03 05:42] LABS: DIFF IND NO
[2017-02-03 13:23] LABS: CALCIUM SERUM 7.9 mg/dL (8.4-10.2); CREATININE SERUM 0.4 mg/dL (0.6-1.4); GLOM FILT RATE Estimated 100.5 mL/min (>60); POTASSIUM 4.2 mmol/L (3.5-5.1)
[2017-02-04 05:28] LABS: HEMATOCRIT 33.4 % (35.0-45.0); HEMOGLOBIN 10.2 gm/dL (12.0-16.0); MEAN CELL VOLUME 76.9 FL (83-96); MEAN CORPUSCULAR HEMOGLOBIN 23.4 PG (28-34); MEAN CORPUSCULAR HGB CONC 30.4 g/dL (30-36); MEAN PLATELET VOLUME 8.5 FL (6.5-11.5); RED BLOOD COUNT 4.34 X10e (3.90-5.30); RED CELL DISTRIBUTION WIDTH 21.7 % (11.0-15.5); WHITE BLOOD COUNT 13.3 X10e3 (4.0-10.5)
[2017-02-04 06:20] LABS: BUN/CREATININE RATIO 23.33; CALCIUM SERUM 7.9 mg/dL (8.4-10.2); CREATININE SERUM 0.3 mg/dL (0.6-1.4); GLOM FILT RATE Estimated 110.5 mL/min (>60)
[2017-02-05 06:28] LABS: HEMATOCRIT 31.5 % (35.0-45.0); HEMOGLOBIN 9.8 gm/dL (12.0-16.0); MEAN CELL VOLUME 76.6 FL (83-96); MEAN CORPUSCULAR HEMOGLOBIN 23.7 PG (28-34); MEAN PLATELET VOLUME 8.5 FL (6.5-11.5); RED BLOOD COUNT 4.11 X10e (3.90-5.30); RED CELL DISTRIBUTION WIDTH 21.8 % (11.0-15.5); WHITE BLOOD COUNT 10.8 X10e3 (4.0-10.5)
[2017-02-05 07:25] LABS: BUN/CREATININE RATIO 22.5; CALCIUM SERUM 7.8 mg/dL (8.4-10.2); CREATININE SERUM 0.4 mg/dL (0.6-1.4); GLOM FILT RATE Estimated 100.5 mL/min (>60); POTASSIUM 3.7 mmol/L (3.5-5.1)
[2017-02-06 07:57] LABS: BUN/CREATININE RATIO 23.33; CALCIUM SERUM 7.4 mg/dL (8.4-10.2); CREATININE SERUM 0.3 mg/dL (0.6-1.4); GLOM FILT RATE Estimated 110.5 mL/min (>60); POTASSIUM 3.3 mmol/L (3.5-5.1)
== END 2017-02-07 17:00 | DRG 698 ==
LOC: CED 15:44 → CEDOF 15:50 → CICCU2 01-29 07:50 → C5B 02-02 15:00
PROVIDERS: Emergency Medicine; Hospitalist; Internal Medicine Cardiovascular Disease; Internal Medicine Nephrology; Nurse Practitioner Family; Physician Assistant Medical
PROC: B246ZZZ Ultrasonography of Right and Left Heart (ICD-10-PCS; principal; 2017-01-29)
DX: T83.518A Infection and inflammatory reaction due to other urinary catheter, initial encounter (principal); A41.51 Sepsis due to Escherichia coli [E. coli]; R65.21 Severe sepsis with septic shock; N17.9 Acute kidney failure, unspecified; D69.6 Thrombocytopenia, unspecified; I27.2 Other secondary pulmonary hypertension; I11.0 Hypertensive heart disease with heart failure; I50.9 Heart failure, unspecified; N39.0 Urinary tract infection, site not specified; N13.2 Hydronephrosis with renal and ureteral calculous obstruction; Y73.8 Miscellaneous gastroenterology and urology devices associated with adverse incidents, not elsewhere classified; B96.20 Unspecified Escherichia coli [E. coli] as the cause of diseases classified elsewhere; L89.619 Pressure ulcer of right heel, unspecified stage; B96.4 Proteus (mirabilis) (morganii) as the cause of diseases classified elsewhere; B96.5 Pseudomonas (aeruginosa) (mallei) (pseudomallei) as the cause of diseases classified elsewhere; J44.9 Chronic obstructive pulmonary disease, unspecified; D63.8 Anemia in other chronic diseases classified elsewhere; E87.6 Hypokalemia; L89.899 Pressure ulcer of other site, unspecified stage; E78.5 Hyperlipidemia, unspecified; M19.90 Unspecified osteoarthritis, unspecified site; M81.0 Age-related osteoporosis without current pathological fracture; Z87.891 Personal history of nicotine dependence; Z90.49 Acquired absence of other specified parts of digestive tract; Z79.82 Long term (current) use of aspirin; E34.3 Short stature due to endocrine disorder; M62.3 Immobility syndrome (paraplegic); I08.1 Rheumatic disorders of both mitral and tricuspid valves; E83.42 Hypomagnesemia; J84.10 Pulmonary fibrosis, unspecified
CPT/HCPCS: 71010; 74176; 80048; 80053; 81003; 82306; 82308; 82550; 82553; 83605; 83735; 83880; 84132; 84443; 84484; 85025; 85027; 87040; 87070; 87077; 87086; 87088; 87186; 87205; 87804; 90732; 93005; 93306; 94640; 94760; 94761; 96361; 96374; 96375; 97110; 97163; 97167; 97530; 99291; G0009; G8978-GP; G8979-GP; G8987-GO; G8988-GO; J0290; J0696; J1265; J1650; J2185; J2405; J3260; J3475; J3480